=== PATIENT | male | born 1980 | race African-American/Black ===

== ENCOUNTER 2022-09-05 07:49 | Outpatient (OUT) | payer BC, SELFPAY ==
--- NOTE | 2022-09-05 08:08 | CT_ITS ---
[address] [address] Patient Name: GABRIELE ESPINAL MRN: [facility]:[id number] date: 1980 Sex: M Assigned Patient Location: CT Current Patient Location: CT Accession/Order Number: [id number] Exam Date: 09/05/2022 08:00 Report Date: 09/06/2022 09:19 At the request of: DEVI SOTELO Procedure: CT chest wo con EXAMINATION: CT chest wo con HISTORY: LUNG NODULES (R91.8) COMPARISON: 06/30/2021 TECHNIQUE: Multi-planar CT images were created with IV contrast. Axial, Coronal, and Sagittal images. Dose reduction techniques were achieved by using automated exposure control and/or adjustment of mA and/or kV according to patient size and/or use of iterative reconstruction technique. FINDINGS: LUNGS: Bilateral subcentimeter noncalcified solid pulmonary nodules stable both in size and density from the prior exam with the largest nodule identified along the minor fissure measuring 7.3 x 4.3 mm axial image 46. No new significant pulmonary nodule or mass PLEURA: No mass, effusion, or pneumothorax. VASCULATURE: No abnormality. NELSON: No mass or adenopathy. MEDIASTINUM: No mass or adenopathy. CARDIAC: No enlargement, pericardial thickening, or significant calcification. AORTA: No aneurysm or dissection. CHEST WALL: No mass or axillary adenopathy. BONES: No bone lesion or fracture. LIMITED ABDOMEN: No suspicious findings. Limited images of the upper abdomen. OTHER: Negative. IMPRESSION: Stable scattered subcentimeter pulmonary nodules Electronically authenticated by: PABLITO CHAPIN Date: 09/06/2022 09:19
== END 2022-09-05 07:50 ==
LOC: CT 07:53
PROVIDERS: PCP Nurse Practitioner; Visit Provider Nurse Practitioner
DX: R91.8 Other nonspecific abnormal finding of lung field (principal)
CPT/HCPCS: 71250